=== PATIENT | female | born 1980 | race Caucasian/White ===

== ENCOUNTER 2017-12-31 11:26 | Day surgery (SDC) | payer SELFPAY ==
[2017-12-31] MEDS ORDERED: ceFAZolin 1 GM VIAL IVP ONE (11:47)
[2017-12-31] MEDS ORDERED: BUPIVACAINE/EPI 0.5% 30 ML SDV ONE (11:56)
[2017-12-31] MEDS ORDERED: HEPARIN 1000 UNIT/1 ML MDV ONE (11:56)
[2017-12-31] MEDS ORDERED: ceFAZolin 1 GM/5 ML SYR ONE (11:57)
[2017-12-31] MEDS ORDERED: ceFAZolin 2 GM/DEXTROSE 100 ML IV ONE (12:00)
--- NOTE | 2017-12-31 12:12 | EDPHY ---
H & P Time Seen by Provider: 12/31/17 11:38 HPI/ROS: HPI Abdominal pain. Sent from [facility]. 37-year-old female by ambulance with boyfriend. This patient was seen in the emergency department [facility] after developing lower mid abdominal pain starting at 1-[address] scan was significant for a cecal volvulus. This surgeon than contacted by Dr. Viet Hale who wanted the patient seen in the emergency department on arrival. The patient has had associated nausea but no vomiting. Last meal was last night. Last bowel movement was yesterday. No bloody or melenic stool. ROS: Constitutional: No fever, no chills. No weakness. Respiratory: No cough. No shortness of breath. Cardiac: No chest pain, no palpitations. Gastrointestinal: As above, no vomiting, no diarrhea. Genitourinary: No hematuria. No dysuria or increased frequency with urination. Musculoskeletal: No back pain. No neck pain. No myalgias or arthralgias. Neurological: No headache. No focal weakness or altered sensation. Past medical history: She denies any significant past medical or surgical history. Social history: Nonsmoker. Here with her boyfriend. No alcohol. Physical Exam: General Appearance: Alert, no distress at this time. This patient is responding to questions appropriately and in full sentences. This patient appears well-hydrated and well-nourished. Eyes: Pupils equal and round no pallor or injection. No lid edema, erythema or injection. Respiratory: There are no retractions, lungs are clear to auscultation with good air movement bilaterally. Cardiovascular: Regular rate and rhythm. No murmur. Gastrointestinal: Abdomen is soft with vague mid and lower abdominal tenderness on palpation, no masses, bowel sounds are diminished. No focal tenderness at McBurney's point. No Eddy sign. Neurological: Motor sensory function is grossly intact. Cranial nerves are normal. Gait is normal. Skin: Warm and dry, no rashes. Musculoskeletal: Neck is supple and nontender. Extremities are symmetrical. All joints range without pain or impingement. Psychiatric: No agitation. No depression. Database: EKG: Imaging: Procedures: Emergency department course: Triage vital signs reviewed and are normal. The patient was seen and evaluated by Dr. Viet Hale shortly after arrival in our emergency department. She will be taken to the OR under his care. 12:15 p.m., the patient was taken to the OR under the care of Dr. Viet Hale in stable condition. Her remaining emergency department course under my care has been uneventful. Differential Diagnosis: The differential diagnosis on this patient includes but is not limited to cecal volvulus. Appendicitis, diverticulitis, cholecystitis unlikely. This represents a partial list of diagnoses considered. These considerations are based on history, physical exam, past history, reassessment and diagnostic testing. Smoking Status: Never smoked Constitutional: Initial Vital Signs Temperature (C) 36.7 C 12/31/17 11:30 Heart Rate 61 12/31/17 11:30 Respiratory Rate 18 12/31/17 11:30 Blood Pressure 114/89 H 12/31/17 11:30 O2 Sat (%) 100 12/31/17 11:30 O2 Delivery Mode Room Air Allergies/Adverse Reactions: No Known Allergies Allergy (Unverified 12/31/17 11:30) Home Medications: Medication Instructions Recorded Adderall 10 MG (*) 12/31/17 Departure - Departure Disposition: To OP Cath/Surgery Clinical Impression: Cecal volvulus
[2017-12-31] MEDS ORDERED: LR 1,000 ML IV ONE (12:15)
[2017-12-31] MEDS ORDERED: ERTAPENEM 1 GM in NS 100 ML IV ONE (12:30)
--- NOTE | 2017-12-31 12:33 | PDANEPAE ---
ANE History of Present Illness 37 yo for laparoscopy/ ex lap for volvulus ANE Past Medical History - Cardiovascular History Hx Hypertension: No Hx Arrhythmias: No Hx Chest Pain: No Hx Coronary Artery / Peripheral Vascular Disease: No Hx CHF / Valvular Disease: No Hx Palpitations: No - Pulmonary History Hx COPD: No Hx Asthma/Reactive Airway Disease: No Hx Recent Upper Respiratory Infection: No Hx Oxygen in Use at Home: No - Endocrine History Hx Diabetes: No ANE Review of Systems Review of Systems: - Exercise capacity METS (RN): 5 METS ANE Patient History - Allergies Allergies/Adverse Reactions: No Known Allergies Allergy (Unverified 12/31/17 11:30) - Home Medications Home medications: home medication list seen and reviewed Home Medications: Adderall 10 MG (*) 12/31/17 [Last Taken Unknown] - NPO status NPO Since - Liquids (Date): 12/31/17 NPO Since - Liquids (Time): 11:15 NPO Since - Solids (Date): 12/30/17 NPO Since - Solids (Time): 23:00 - Anes Hx Anes Hx: no prior problems - Smoking Hx Smoking Status: Never smoked ANE Labs/Vital Signs - Vital Signs Blood Pressure: 114/89 Heart Rate: 61 Respiratory Rate: 18 O2 Sat (%): 100 Height: 5 ft 4 in Weight: 61.235 kg ANE Physical Exam - Airway Neck exam: FROM Mallampati Score: Class 2 Mouth exam: normal dental/mouth exam - Pulmonary Pulmonary: no respiratory distress - Cardiovascular Cardiovascular: regular rate and rhythym - ASA Status ASA Status: II ANE Anesthesia Plan Anesthesia Plan: general endotracheal anesthesia
[2017-12-31] MEDS ORDERED: MIDAZOLAM 2 MG/2 ML VIAL IVP ONE (12:34)
[2017-12-31] MEDS ORDERED: MIDAZOLAM 2 MG/2 ML VIAL ONE (12:34)
[2017-12-31] MEDS ORDERED: NA BICARBONATE 50 MEQ/50 ML VIAL ONE (12:39)
[2017-12-31] MEDS ORDERED: fentaNYL 250 MCG/5 ML INJ ONE (12:39)
[2017-12-31] MEDS ORDERED: PROPOFOL/EMULSION 500 MG/50 ML BOTTLE IV ONE (12:40)
[2017-12-31] MEDS ORDERED: ROCURONIUM 100 MG/10 ML VIAL ONE (12:41)
[2017-12-31] MEDS ORDERED: DEXAMETHASONE 4 MG/ML VIAL ONE (12:42)
[2017-12-31] MEDS ORDERED: ONDANSETRON 4 MG/2 ML VIAL ONE ×2 (12:42→13:53)
[2017-12-31] MEDS ORDERED: SUGAMMADEX SODIUM 200 MG/2 ML VIAL IVP ONE (13:53)
[2017-12-31] MEDS ORDERED: ONDANSETRON 4 MG/2 ML VIAL IVP PRN (14:00)
[2017-12-31] MEDS ORDERED: fentaNYL 100 MCG/2 ML INJ IVP PRN (14:00)
[2017-12-31] MEDS ORDERED: PROMETHAZINE HCL 25 MG/ML INJ IVP PRN (14:00)
[2017-12-31] MEDS ORDERED: HYDROmorphONE/DILAUDID 1 MG/ML INJ IVP PRN (14:00)
[2017-12-31] MEDS ORDERED: oxyCODONE IR 5 MG TAB PO PRN (14:00)
[2017-12-31] MEDS ORDERED: NALOXONE HCL 0.4 MG/ML INJ IVP PRN (14:00)
--- NOTE | 2017-12-31 14:15 | POSTOPPROG ---
Post Op Note Date of Operation: 12/31/17 Surgeon: Brian Hale Supervisor Central Supply: Tata Garcias Anesthesiologist: Genesis Reed Anesthesia: GET(General Endotracheal) Pre-op Diagnosis: cecal volvulus Post-op Diagnosis: same Procedure: laparoscopic cecopexy Findings: viable cecum, readily untwisted, long noninflamed appendix Inf/Abcess present in the surg proc area at time of surgery?: No EBL: Minimal Complications: none Specimen(s): none
--- NOTE | 2017-12-31 14:32 | POSTANESTH ---
Post Anesthetic Evaluation Cardiovascular Status: Normal, Stable Respiratory Status: Normal, Stable Level of Consciousness/Mental Status: Can Participate in Eval Pain Control: Adequate, Prn Tx Ordered Nausea/Vomiting Control: Adequate, Prn Tx Ordered Complications Possibly Related to Anesthesia: None Noted
[2017-12-31] MEDS ORDERED: oxyCODONE IR 5 MG TAB ONE (16:20)
[2017-12-31 16:28] VITALS: BP 121/84
--- NOTE | 2018-01-05 20:06 | GOP ---
[f rep st] OPERATIVE REPORT DATE OF OPERATION: 12/31/2017 SURGEON: Brian Hale MD ELL TUTOR: Tata Garcias, PAC. PREOPERATIVE DIAGNOSIS: Cecal volvulus. POSTOPERATIVE DIAGNOSIS: Cecal volvulus. PROCEDURE PERFORMED: Laparoscopic cecopexy. FINDINGS: The patient was found to have a large redundant cecum which was twisted 180 degrees on its elf. However, the bowel was dilated, but was quite viable and could be easily untwisted. DESCRIPTION OF PROCEDURE: The patient was taken to the operating room where she received satisfactor y general endotracheal anesthesia. She was placed in supine position, prepped and draped in the usua l sterile fashion. A periumbilical incision was made. A Veress needle inserted. Pneumoperitoneum w as established. Trocar was introduced. Good visualization was obtained. Two other trocars were frankc antonette in the lower abdomen under direct vision. The abdomen was thoroughly examined. The right colon was then manipulated, and it was able to be untwisted till it was the full 180 degrees untwisting. I t remained viable. It was elected to proceed with the cecopexy rather than resection. The lateral p eritoneum along the right side of the colon was incised and a raw area was created by elevating up a peritoneal flap. The cecum was then pexied to the lateral abdominal wall in multiple places with 0 V icryl sutures. This was done all along the lateral border of the right colon all the way up to nearl y the hepatic flexure. In addition, the flap was further secured with a running self- locking suture . The wound was irrigated. Hemostasis appeared to be adequate. The appendix itself looked normal a nd viable, and we did not take the appendix out. Trocars were removed under direct vision. Trocar s ites were closed with 4-0 Monocryl subcuticular stitch for the skin. All layers were infiltrated wit h 0.5% Marcaine. Blood loss was negligible. She tolerated the procedure well, was taken to the [facility] room in good condition. There were no complications. /[id number]/MODL
== END 2017-12-31 17:08 | disposition home or self-care (01) ==
LOC: FSGY 12:05 → F3E 12:06 → UNDOADMIN 12:06 → FSGY 17:08
PROVIDERS: ATTEND Surgery
PROC: 0DSH4ZZ Reposition Cecum, Percutaneous Endoscopic Approach (ICD-10-PCS; principal; 2017-12-31 13:00)
DX: K56.2 Volvulus (principal); Z88.0 Allergy status to penicillin
CPT/HCPCS: J0690; J1100; J1335; J2250; J2405; J2704; J3010